=== PATIENT | male | born 1985 | race Caucasian/White ===

== ENCOUNTER 2020-01-05 06:23 | Day surgery (SDC) | payer BC ==
[~2020-01-05 06:23] MED LIST: Dextrose 5%-0.45% NaCl 1,000 ML IV SCH; Sodium Chloride 0.9% 10 ML Syringe FLUSH PRN
[2020-01-05] MEDS ORDERED: fentaNYL 100 MCG/2 ML SDV IV ONE ×3 (06:24→07:20)
[2020-01-05] MEDS ORDERED: Midazolam 1 MG/ML 2 ML SDV IV ONE ×3 (06:24→07:21)
[2020-01-05] MEDS ORDERED: fentaNYL 100 MCG/2 ML SDV ONE (06:28)
[2020-01-05] MEDS ORDERED: Midazolam 1 MG/ML 2 ML SDV ONE (06:28)
--- NOTE | 2020-01-05 11:45 | OR ---
DATE: 01/05/2020 PROCEDURES: Esophagogastroduodenoscopy, narrow-band imaging, and multiple pinch biopsies. INSTRUMENT USED: [id number]-HQ190 Olympus video panendoscope. PREMEDICATIONS: No oral or topical anesthesia used. Fentanyl 100 mcg intravenous, Versed 2 mg intravenous. Procedure was done under pulse oximetry, BP recording, and regeneration operator. INDICATION: The patient with persistent abdominal pain, unexplained and not responsive to medical measures. Esophagogastroduodenoscopy is performed for detection of any active erosive lesions, Mendez esophagus and/or malignancy also under consideration, H pylori status to be determined. Endoscopic hemostasis therapy if needed. PROCEDURE IN DETAIL: The scope was passed with ease. Adequate visualization of the esophagus was made from proximal to distal areas. No upper esophageal lesions identified. No distal esophageal stricture. No uphill or downhill esophageal varices. No Flavia-Rowe tear. No evidence of erosive esophagitis by De[place]field criteria. No esophageal polyp or tumor mass identified. Z-line was seen at around 40 cm distal to the oral verge, configuration consistent with grade 1 by ZAP classification. No proximal gastric varices noted. Gastric fundus examination by retroflexion showed no polypoid lesions. No gastric ulcer, malignant mass, or vascular ectasia identified. In the prepyloric area, benign-appearing erosion was noted, NBI views were obtained. Duodenal bulb showed no ulcer. Visualized second part of the duodenum was unremarkable. Multiple pinch biopsies were taken from the gastric antrum and proximal body and sent for PyloriTek test for H pylori, and if negative in an hour, the tissue is to be sent for histopathology. No bleeding was noted from any of the visualized areas at the completion of examination. Photographs were taken of the duodenal bulb, gastric antrum, fundus, and distal esophagus. IMPRESSION: Gastric antral erosion. The patient tolerated the procedure well. [facility] /[id number]
== END 2020-01-05 09:30 | disposition home or self-care (01) ==
LOC: DL.ENDO 06:23
PROVIDERS: ATTEND Internal Medicine Gastroenterology
DX: K25.9 Gastric ulcer, unspecified as acute or chronic, without hemorrhage or perforation (principal); K31.89 Other diseases of stomach and duodenum; Z98.890 Other specified postprocedural states; Z90.89 Acquired absence of other organs
CPT/HCPCS: 43239; 87077; J2250; J3010; J7042

== ENCOUNTER 2023-01-27 08:58 | Emergency (ER) | payer BC ==
[2023-01-27] MEDS: Sodium Chloride 0.9% 10 ML Syringe FLUSH PRN (09:29)
[2023-01-27 10:04] LABS: ANION GAP 11.1 mEq/L (7-13)
== END 2023-01-27 10:58 | disposition home or self-care (01) ==
LOC: DL.ED 08:58
DX: M94.0 Chondrocostal junction syndrome [Tietze] (principal); R00.2 Palpitations
CPT/HCPCS: 36415; 71045; 80053; 83735; 84484; 85025; 85379; 93005; 93010; 99284; 99285; J3490